=== PATIENT | male | born 1990 | race Caucasian/White ===

== ENCOUNTER 2018-11-23 22:07 | Emergency (ER) | payer OTHER | END 2018-11-23 22:33 | disposition home or self-care (01) | LOC: JER 22:07 ==

== ENCOUNTER 2020-08-15 23:24 | Emergency (ER) | payer BC, OTHER ==
[2020-08-15 23:52] VITALS: BP 127/68; PULSE 91; TEMP 98.8; BMI 24.8
== END 2020-08-16 00:16 | disposition home or self-care (01) ==
LOC: JER 23:24
DX: Z77.29 Contact with and (suspected) exposure to other hazardous substances (principal)
CPT/HCPCS: 99282-25